=== PATIENT | male | born 1980 | race Hispanic/Latino ===

== ENCOUNTER 2020-06-08 02:04 | Emergency (ER) | payer OTHER, SELFPAY ==
--- NOTE | ~2020-06-08 | XR_ITS ---
EXAMINATION: XR chest 2V DATE: 06/08/2020 02:43 INDICATION: Midline chest pain. TECHNIQUE: Frontal and lateral views of the chest were obtained. COMPARISON: Chest 2 views 06/26/2019, chest CT 04/20/2016 FINDINGS: There are airspace opacities in the lower lung zones. No pleural effusion or pneumothorax. The heart size is normal. IMPRESSION: 1. Airspace opacities in the lower lung zones, consistent with atelectasis versus pneumonia. Reviewed, dictated and finalized at location A. IMPRESSION: 1. Airspace opacities in the lower lung zones, consistent with atelectasis vers us pneumonia.
[2020-06-08 02:08] VITALS: BP 118/84; PULSE 63; RESP 18; TEMP 36.1; O2SAT 100
--- NOTE | 2020-06-08 02:16 | ECG_ITS ---
Measurements Intervals [place] Rate: 61 P: 34 WA: 164 QRS: 8 QRSD: 109 T: 32 QT: 378 QTc: 384 Interpretive Statements SINUS RHYTHM EARLY PRECORDIAL R/S TRANSITION VOLTAGE CRITERIA FOR LVH MINIMAL Q WAVES- HIGH LATERAL LEADS BASELINE ARTIFACT- I, II, AVR, AVL, AVF, V1 BORDERLINE ECG Electronically Signed On 06-08-2020 7:07:26 CDT by Ok Link D.O.
[2020-06-08 02:39] LABS: INR 1.1; Prothrombin Time 13.6 Seconds (11.1-14.7)
[2020-06-08 02:40] LABS: Partial Thromboplastin Time 31.5 SECONDS (22.3-36.8)
[2020-06-08 02:41] LABS: Basophils Absolute Auto 0.1 K/mm3 (0.0-0.1); Basophils Percent Auto 1.1 % (0.2-1.2); Eosinophils Absolute Auto 0.4 K/mm3 (0-0.3); Eosinophils Percent Auto 3.8 % (0-4.4); Hematocrit 39.8 % (42.0-52.0); Hemoglobin 13.1 g/dL (14.0-18.0); Immature Granulocyte Absolute 0.01 K/mm3 (0.00-0.031); Immature Granulocyte Percent A 0.1 % (0-0.5); Lymphocytes Absolute Auto 4.04 K/mm3 (0.9-3.2); Lymphocytes Percent Auto 41.4 % (18.3-44.2); Mean Corpuscular HGB Conc 32.9 g/dl (32-36); Mean Corpuscular Hemoglobin 27.8 pg (26-34); Mean Corpuscular Volume 84.3 fl (80-100); Mean Platelet Volume 11.2 fl (7.4-10.4); Monocytes Absolute Auto 0.8 K/mm3 (0.1-0.6); Monocytes Percent Auto 7.8 % (2.6-8.5); Neutrophils Absolute Auto 4.5 K/mm3 (1.3-6.7); Neutrophils Percent Auto 45.8 % (45.5-73.1); Platelet Count Result 270 k/mm3 (150-375); Red Blood Count 4.72 M/mm3 (4.6-6.20); White Blood Count 9.8 K/mm3 (4.5-10.0)
[2020-06-08 02:42] LABS: Anion Gap 12 mmol/L (8-16); Blood Urea Nitrogen 12 mg/dL (9-20); Calcium 9.6 mg/dL (8.4-10.2); Carbon Dioxide 24 mmol/L (22-30); Chloride 108 mmol/L (98-107); Estimated CRCL calculation 104 ml/min; Estimated Glomerular Filt Rate > 60; Glucose 95 mg/dL (75-110); Potassium 3.2 mmol/L (3.4-5.0); Sodium 144 mmol/L (137-145)
[2020-06-08 02:54] LABS: Troponin I < 0.012 ng/mL (0.000-0.034)
[2020-06-08 03:24] VITALS: BP 113/84; PULSE 56; RESP 20; O2SAT 100
[2020-06-08] MEDS: ASPIRIN 81 MG CHEWABLE TABLET 324 MG PO (03:24)
[2020-06-08 05:05] VITALS: BP 109/80; PULSE 64; RESP 18; O2SAT 99
--- NOTE | 2020-06-08 05:05 | ED.CHESTPAIN ---
HPI - Chest Pain General Chief Complaint: Chest Pain Stated Complaint: CP Time Seen by Provider: 06/08/20 04:17 Source: patient Mode of arrival: EMS History of Present Illness HPI narrative: This patient is a 40 year old male who presents for evaluation mid chest pain. EMS reports this pain has been present for 3 days. Patient states his pain has only been present for 1 day. He states his pain is located midsternum all the way down his body. He reports that his pain was constant but he denies having any pain now. He reports he had pain when he was working at the [employer]. He denies associated nausea, vomiting, fever, chills, or sob. He states he has been evaluated for this pain in the past. Related Data Home Medications Medication Instructions Recorded Confirmed albuterol sulfate INHALATION 06/08/20 atorvastatin 06/08/20 famotidine 06/08/20 Allergies Allergy/AdvReac Type Severity Reaction Status Date / Time No Known Allergies Allergy Unknown Verified 06/08/20 02:06 Review of Systems Review of Systems: All systems reviewed & are unremarkable except as noted in HPI and below PMFSH Past Medical History Medical History (Updated 06/08/20 @ 06:17 by Myesha Matamoros MD) Bipolar disease, chronic Social History Social History (Updated 06/08/20 @ 05:08 by Myesha Matamoros MD) Smoking status: Former smoker Gender identity (if verbalized by the patient): Male Exam Const: General: no acute distress and alert Orientation/consciousness: patient oriented x3 HENMT: Head: normocephalic and atraumatic Mouth: Yes Normal oral and palatal mucosa present, Yes lip normal, Yes oropharynx normal and Yes moist mucous membranes Throat: posterior oropharynx normal, tonsils normal and uvula midline Eyes: EOM: EOMs intact bilaterally Chest: Chest palpation & inspection: normal inspection of the chest Resp: Effort & Inspection: normal respiratory effort and no retractions Auscultation: clear to auscultation bilaterally Cardio: Rate: regular rate Rhythm: regular rhythm Heart sounds: no murmurs GI: GI Palp: Yes Soft to palpation, No Tenderness to palpation present (GI), No Guarding due to palpation present (GI) and No Rigid due to palpation Skin: General skin exam: normal color Rashes: no rashes Neuro: General: patient oriented x3 and moves all extremities Extrem: General: normal to inspection Course Reevaluation(s) Reevaluation #1: PAtient has been comfortable and sleeping. He is also requesting food. On review of his chart he is low risk and his pain is atypical. Date: 06/08/20 Vital Signs Vital signs: Vital Signs Temperature 97.0 F L 06/08/20 02:08 Pulse Rate 63 06/08/20 02:08 Respiratory Rate 18 06/08/20 02:08 Blood Pressure 118/84 06/08/20 02:08 Pulse Oximetry 100 06/08/20 02:08 Temperature 97.0 F L 06/08/20 02:08 Pulse Rate 82 06/08/20 07:08 Respiratory Rate 18 06/08/20 07:08 Blood Pressure 108/84 06/08/20 07:08 Pulse Oximetry 95 06/08/20 07:08 MDM - Chest Pain Lab Data Attestation: I reviewed the patient's lab results. Result diagrams: 06/08/20 02:20 06/08/20 02:20 Labs: Lab Results 06/08/20 06/08/20 06/08/20 Range/Units 02:20 02:20 02:20 WBC 9.8 (4.5-10.0) K/mm3 RBC 4.72 (4.6-6.20) M/mm3 Hgb 13.1 L (14.0-18.0) g/dL Hct 39.8 L (42.0-52.0) % MCV 84.3 (80-100) fl MCH 27.8 (26-34) pg MCHC 32.9 (32-36) g/dl RDW 16.0 H (11.5-14.5) % Plt Count 270 (150-375) k/mm3 MPV 11.2 H (7.4-10.4) fl Immature Gran % (Auto) 0.1 (0-0.5) % Neut % (Auto) 45.8 (45.5-73.1) % Lymph % (Auto) 41.4 (18.3-44.2) % [place] % (Auto) 7.8 (2.6-8.5) % Eos % (Auto) 3.8 (0-4.4) % Baso % (Auto) 1.1 (0.2-1.2) % Lymph # (Auto) 4.04 H (0.9-3.2) K/mm3 [place] # (Auto) 0.8 H (0.1-0.6) K/mm3 Eos # (Auto) 0.4 H (0-0.3) K/mm3 Baso # (Auto) 0.1 (0.0-0.1) K/
[2020-06-08 05:54] LABS: Troponin I < 0.012 ng/mL (0.000-0.034)
[2020-06-08 07:08] VITALS: BP 108/84; PULSE 82; RESP 18; O2SAT 95
== END 2020-06-08 07:10 | disposition home or self-care (01) ==
PROVIDERS: Emergency Provider General Practice; PCP Internal Medicine Gastroenterology
DX: R07.89 Other chest pain (principal); F31.9 Bipolar disorder, unspecified
CPT/HCPCS: 36415; 71046; 80048; 84484; 85025; 85610; 85730; 93005; 99284; A9270